=== PATIENT | female | born 1935 | race Two or more races ===

== ENCOUNTER 2018-09-19 23:06 | Emergency (ER) | payer OTHER ==
[~2018-09-19] VITALS: Ht 149.9 cm; Wt 51.3 kg
[2018-09-19] MEDS ORDERED: PLAVIX75 MG (23:24)
[2018-09-19] MEDS ORDERED: TOPROL XL25 M1 (23:24)
[2018-09-19] MEDS ORDERED: ATORVASTATIN CA20 MG (23:24)
[2018-09-20] MEDS ORDERED: HYDROCHLOROTHIA25 MG PO (03:18)
== END 2018-09-20 03:48 | disposition home or self-care (01) ==
LOC: ER 23:06
DX: I16.1 Hypertensive emergency (principal); I10 Essential (primary) hypertension